=== PATIENT | male | born 1985 | race African-American/Black ===

== ENCOUNTER 2017-09-27 19:15 | Emergency (ER) | payer MEDICAID ==
[~2017-09-27] VITALS: Ht 190.5 cm; Wt 132.0 kg
[2017-09-27] MEDS ORDERED: IBUPROFEN 400MG TABLET PO ONE (21:15)
[2017-09-27] MEDS ORDERED: ACETAMINOPHEN 500MG TABLET PO ONE (21:15)
[2017-09-27 21:34] VITALS: BP 132/92
== END 2017-09-27 21:52 | disposition home or self-care (01) ==
LOC: ER 19:15
DX: M54.5 Low back pain (principal); G89.29 Other chronic pain
CPT/HCPCS: 99283